=== PATIENT | female | born 1955 ===

== ENCOUNTER 2019-04-27 13:53 | Inpatient (IN) | payer OTHER ==
[~2019-04-27] VITALS: Ht 61 cm; Wt 5.0 kg
--- NOTE | 2019-04-27 14:10 | NUR ---
PTE REFERIDA POR DR SHORT BOYD POR ULCERA EN AMBOS PIES SE REJI S/V Y SE UBIAC EN AREA DE OBSERVACION
--- NOTE | 2019-04-27 14:34 | NUR ---
MR TIERNEY ORIENTA A PACIENTE SOBRE ORDENES MEDICAS, COLECTA MUESTRAS DE MARS Y CANALIZA VENA.
--- NOTE | 2019-04-27 14:43 | NUR ---
PTE SE OBSERVA A PTE CON BENDAJES EN AMBOS PIES Y CUBIERTOS.
--- NOTE | 2019-04-27 15:22 | NUR ---
PACIENTE ALERTA Y ORIENTADA X3. EN CRISPIN CON BARANDAS ELEVADAS. MISS. LEE ORIENTA A PACIENTE SOBRE PROCEDIMIENTO A REALIZAR Y REFIERE ENTENDER. REALIZA MUESTRAS DE MARS BAJO MEDIDAS ASEPTICAS. SE MANTIENE BAJO OBSERVACION POR CAMBIOS SIGNIFICATIVOS. PACIENTE CON ULCERA EN AMBOS PIES.
[2019-05-05] MEDS ORDERED: FLUCONAZOLE100 MG PO (13:15)
[2019-05-05] MEDS ORDERED: INTESTINEX680 M1 PO (13:15)
== END 2019-05-05 15:31 | disposition home or self-care (01) | DRG 603 ==
LOC: ER 13:53 → MEDI 18:36 → MEDJ 04-28 16:30 → MEDI 04-28 20:32 → MEDJ 04-29 10:28 → MEDI 04-29 11:16 → MEDJ 04-29 16:59
PROVIDERS: ADMIT Internal Medicine
DX: L03.032 Cellulitis of left toe (principal); J45.41 Moderate persistent asthma with (acute) exacerbation; L03.031 Cellulitis of right toe; L97.522 Non-pressure chronic ulcer of other part of left foot with fat layer exposed; I10 Essential (primary) hypertension; B96.5 Pseudomonas (aeruginosa) (mallei) (pseudomallei) as the cause of diseases classified elsewhere